=== PATIENT | male | born 1995 | race Caucasian/White ===

== ENCOUNTER 2020-11-30 00:03 | Emergency (ER) | payer MEDICAID ==
[~2020-11-30] VITALS: Ht 175.3 cm; Wt 91.9 kg
[2020-11-30 00:15] VITALS: Ht 175.3 cm; Wt 91.9 kg
[2020-11-30 03:38] VITALS: BP 120/72
== END 2020-11-30 03:38 | disposition home or self-care (01) ==
LOC: ED 00:03
DX: S43.084A Other dislocation of right shoulder joint, initial encounter (principal); X58.XXXA Exposure to other specified factors, initial encounter; Y93.89 Activity, other specified; Y92.89 Other specified places as the place of occurrence of the external cause; Y99.8 Other external cause status
CPT/HCPCS: J1885; J2270; J3490; J7030; Q0162